=== PATIENT | male | born 1965 | race Native Hawaiian/Other Pacific Islander ===

== ENCOUNTER 2017-02-21 14:38 | Emergency (ER) | payer OTHER ==
[~2017-02-21] VITALS: Ht 170.2 cm; Wt 89.4 kg
[~2017-02-21 14:38] MED LIST: ALPR1TAB61 PO; AZOR1 TA1 PO; AZOR1 TAB PO; BENICAR20 MG PO; DEXILANT30 MG PO; DEXL60CA4 PO; ROSU10TA PO
[2017-02-21 15:20] VITALS: BP 121/79; TEMP 98
[2017-02-21 17:23] LABS: PLATELET COUNT 250 K/uL (142-355)
[2017-02-21 17:31] LABS: POTASSIUM 3.8 mmol/L (3.6-5.2)
== END 2017-02-21 18:45 | disposition home or self-care (01) ==
LOC: ED 14:38
DX: F19.10 Other psychoactive substance abuse, uncomplicated (principal)
CPT/HCPCS: 80053; 80307; 80320; 80329; 81000; 85027; 99283; G0479

== ENCOUNTER 2020-10-23 08:49 | Inpatient (IN) | payer OTHER ==
[2020-10-23] VITALS (24 sets, daily range): BP systolic 117–152; BP diastolic 51–93; TEMP 98.5–99; Ht 170.2 cm; Wt 82.7 kg
[~2020-10-23] VITALS: Ht 170.2 cm; Wt 82.7 kg
[2020-10-23 09:55] LABS: PLATELET COUNT 214 K/uL (142-355)
[2020-10-23 10:05] LABS: POTASSIUM 3.1 mmol/L (3.6-5.2)
--- NOTE | 2020-10-23 12:48 | NUR ---
PT TO ICU VIA STRETCHER ADMIT FROM ER.PT MOVED SELF TO BED FROM STRETCHER.PT VERY DROWSY, SPEECH MUMBLING BUT KNOWS HIS NAME. IO INTACT R LOWER LEG, SALINE LOCKED. PT'S JEANS & SHOES& SOCKS REMOVED WITH HIS ASSIST TO LIFT HIPS.CHILDS TO BSD WITH CLEAR YELLOW URINE.COLOR PINK, SKIN W/D. NOTED WHAT APPEARS TO BE NEEDLE MCGARRY INSIDE L FA.
--- NOTE | 2020-10-23 13:20 | NUR ---
PT AWAKE WHEN NAME CALLED. PT COOPERATIVE. IV 20G INSERTED X 1 STICK R WRIST PER GAMA SALAZAR LPN.
--- NOTE | 2020-10-23 13:40 | NUR ---
IV SALINE LOCK INSERTED X 1 STICK LWRIST PER GAMA SALAZAR LPN.
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
--- NOTE | 2020-10-23 15:00 | NUR ---
DR ALEXANDER IN TO SEE PT. PT SNORING LOUDLY.
--- NOTE | 2020-10-23 15:21 | NUR ---
PT RESTING WITH EYES CLOSED SNORING LOUDLY. MOVED SELF IN BED FOR COMFORT. O2 SATS 98% ON RM AIR.
--- NOTE | 2020-10-23 17:05 | NUR ---
PT AWAKE & TRYING TO GET OUT OF BED. PT C/O NEED TO HAVE A BM. PT ASSISTED TO BSC. FOR BM. STEADY WHEN STANDING BRIEFLY.
--- NOTE | 2020-10-23 17:15 | NUR ---
PT HAD A LARGE FORMED BROWN BM. PERICARE PER SELF. SL UNSTEADY WHEN GETTING BACK IN BED. REQUESTED TO USE THE PHONE 'TO SEE WHERE MY CAR IS'. PT USED TELE TO CK ON CAR.
--- NOTE | 2020-10-23 18:22 | NUR ---
PT REQUESTED'A BOTTLE OF WATER'. ASSISTED TO EAT A FEW ICE CHIPS & RIGHT BACK TO SLEEP.
--- NOTE | 2020-10-23 19:50 | NUR ---
RESTING WITH EYES CLOSED, NO S/S OF PAIN OR DISTRESS NOTED, WILL MONITOR CLOSELY, RAILS UP X3, BED IN LOW POSITION, CALL LIGHT IN REACH, HOB ELEVATED.
--- NOTE | 2020-10-23 21:25 | NUR ---
RESTING IN POSITION OF COMFORT WITH EYES CLOSED, NO S/S OF PAIN OR DISTRESS NOTED, RESP RATE NORMAL AND NONLABORED, CHILDS PATENT DRAINING TO BEDSIDE, IV LOCK INTACT TO R WRIST, IO INTACT TO R LOWER LEG, IV INTACT TO L WRIST WITH NS INFUSING AT 125ML/HR, VITALS BEING MONITORED/STABLE PULSE RATE 70-80s, COMMUTATOR PRESSER IN USE WITH REGULAR RHYTHM NOTED, WILL MONITOR CLOSELY, RAILS UP, BED IN LOW POSITION, CALL LIGHT IN REACH.
--- NOTE | 2020-10-23 22:26 | NUR ---
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 REASSURED PT AND TALKED WITH HIM. BROUGHT PT SNACK TO EAT DUE TO LOC ALERT AND ORIENTED(ORDER TO ADVANCE DIET FROM NPO ONCE LOC IMPROVED). PT NOW EATING AND CONTINUES TO TALK WITH STAFF, NO DISTRESS, DENIES ANY PROBLEMS, RAILS UP, BED IN LOW POSITION.
--- NOTE | 2020-10-23 23:05 | NUR ---
REMAINS AWAKE, ALERT, AND ORIENTED SITTING UP IN BED TALKING WITH STAFF ABOUT HIS CARE AND LAB RESULTS, DENIES ANY PROBLEMS OR NEEDS. ATE SNACK(CHIPS) AND DRANK A BOTTLE OF WATER WITH NO PROBLEMS OR S/S OF ASPIRATION. WILL MONITOR CLOSELY, RAILS UP, BED IN LOW POSITION, ENCOURAGED TO CALL NEEDED.
[2020-10-24] VITALS (12 sets, daily range): BP systolic 102–144; BP diastolic 58–88; TEMP 98.2–99.5
--- NOTE | 2020-10-24 00:10 | NUR ---
RESTING WITH EYES CLOSED AND SNORING NOTED OFF AND ON, NO S/S OF PAIN OR DISTRESS NOTED, RESP RATE 18 NONLABORED, ON ROOM AIR WITH SAT OF 98%, WEAPONS SYSTEM INSTRUMENT MECHANIC IN USE, BOTH IV SITES INTACT AND IO SITE INTACT, VITALS BEING MONITORED, WILL MONITOR CLOSELY, RAILS UP, BED IN LOW POSITION.
--- NOTE | 2020-10-24 02:00 | NUR ---
RESTING WITH EYES CLOSED AND SNORING NOTED AT TIMES, RESP RATE 18 NONLABORED, ON ROOM AIR, BOTH IV SITES INTACT AND IO SITE INTACT, CHILDS PATENT DRAINING TO BEDSIDE, VITALS BEING MONITORED/STABLE, LAYING ON R SIDE IN BED WITH NO S/S OF PAIN OR DISTRESS NOTED, WILL MONITOR, RAILS UP, BED IN LOW POSITION.
--- NOTE | 2020-10-24 04:10 | NUR ---
RESTING IN BED WITH EYES CLOSED AND SNORING NOTED, NO S/S OF PAIN OR DISTRESS NOTED, RESP RATE NONLABORED, ON ROOM AIR WITH SAT OF 96%, CHILDS PATENT DRAINING TO BEDSIDE, BOTH IV SITES INTACT, IO INTACT TO R LOWER LEG, NS INFUSING AT 125ML/HR, VITALS BEING MONITORED/STABLE, CRUSHER SUPERVISOR IN USE WITH REGULAR RATE IN 70s. WILL MONITOR CLOSELY, RAILS UP, BED IN LOW POSITION.
[2020-10-24 05:42] LABS: PLATELET COUNT 229 K/uL (142-355)
[2020-10-24 05:54] LABS: POTASSIUM 3.7 mmol/L (3.6-5.2)
--- NOTE | 2020-10-24 07:30 | NUR ---
PATIENT RESTING IN BED SLEEPING. NAD NOTED. 20 G PERIPHERAL IV'S INTACT IN RIGHT AND LEFT WRISTS. IO TO RIGHT LOWER LEG IN PLACE. NS INFUSING AT 125ML/HR. BED IN LOWEST POSITION. CALL LIGHT WITHIN REACH. UPPER SIDE RAILS UP X2. VITAL SIGNS STABLE AND BEING MONITORED. WILL CONTINUE TO MONITOR.
--- NOTE | 2020-10-24 08:14 | NUR ---
IO TO THE RIGHT LOWER EXTREMITY REMOVED WITH EMPTY SYRINGE LUER LOCK IN PLACE AND TWISTING MOTION. IO REMOVED WITH TIP INTACT AND COVERED WITH 4X4 GAUZE AND TAPE. NO BLEEDING NOTED WHEN REMOVED. CIRCULATION TO LOWER EXTREMITY IS GOOD WITH PEDAL PULSE PRESENT, CAPILLARY REFILL< 3 SECONDS AND AREA IS WARM TO TOUCH. PATIENT TOLERATED WELL.
--- NOTE | 2020-10-24 10:00 | NUR ---
VERBAL ORDER TO TRANSFER PATIENT FROM ICU3 TO MED SURG FLOOR 113.
--- NOTE | 2020-10-24 10:42 | NUR ---
PATIENT TRANSFERRED FROM ICU 3 TO MED SURG FLOOR 3 VIA WHEELCHAIR. PATIENT IS AOX4. PATIENT LEFT IN NO ACUTE DISTRESS.
--- NOTE | 2020-10-24 13:08 | NUR ---
EMPTIED CHILDS BAG APPROX. 1400 ML OF ESTELITA URINE WAS NOTED AND DISCARDED. 10 ML OF NS REMOVED FROM BULB AND CHILDS CATHETER DISCONTINUED WITH TIP INTACT. PATIENT TOLERTED PROCEDURE WELL.
--- NOTE | 2020-10-24 13:37 | NUR ---
PATIENT IS AOX4. PATIENT ATE WITHOUT ASSISTANCE ALL HIS LUNCH 100%. PATIENT IS ABLE TO STAND UP AND USE THE BEDSIDE COMMODE W/O ASSISTANCE AND HE DID HAVE A LARGE BROWN SOFT BM. PATIENT DID ASK TO GO OUTSIDE AND SMOKE AND THIS NURSE NOTIFIED HIM WE DID NOT ALLOW PATIENTS ADMITTED TO THE INTENSIVE CARE UNIT TO GO OUTSIDE AND SMOKE. PATIENT VOICED UNDERSTANDING. TALKING TO PATIENT AT THIS TIME.
--- NOTE | 2020-10-24 14:05 | NUR ---
BOTH 20G IV'S TO THE WRIST WERE REMOVED WITH TIP INTACT AND COVERED WITH 2X2 AND SECURED WITH KOBAN.
--- NOTE | 2020-10-24 14:40 | NUR ---
PATIENT BELONGINGS AT THE BEDSIDE IN [facility], [place] BACK PER FLASK CARRIER NURSE. PATIENT GOT ALL HIS BELONGINGS PRIOR TO LEAVING. PATIENT STATED " EVERYTHING IS IN HERE $ 22.41, MY [employer]".
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
== END 2020-10-24 14:45 | disposition home or self-care (01) | DRG 918 ==
LOC: ED 08:55 → ICU 11:00
PROVIDERS: Family Medicine; ADMIT Internal Medicine Endocrinology, Diabetes & Metabolism; ATTEND Internal Medicine Endocrinology, Diabetes & Metabolism
DX: T40.1X1A Poisoning by heroin, accidental (unintentional), initial encounter (principal); Y92.89 Other specified places as the place of occurrence of the external cause; F19.10 Other psychoactive substance abuse, uncomplicated; I10 Essential (primary) hypertension; Z72.0 Tobacco use; G89.4 Chronic pain syndrome; E87.6 Hypokalemia; R79.89 Other specified abnormal findings of blood chemistry
CPT/HCPCS: 36415; 51702; 80053; 80074; 80307; 80320; 80329; 81000; 84132; 85027; 87635; 93005; 96360; 99285; J3480; J3490; U0003

== ENCOUNTER 2021-03-26 14:34 | Emergency (ER) | payer OTHER ==
[~2021-03-26] VITALS: Ht 170.2 cm; Wt 82.6 kg
== END 2021-03-26 15:07 | disposition expired ==
LOC: ED 14:55
PROC: 5A12012 Performance of Cardiac Output, Single, Manual (ICD-10-PCS; principal; 2021-03-26)
DX: I46.9 Cardiac arrest, cause unspecified (principal)
CPT/HCPCS: 92950; 96360; 96374; 96375; 99285